=== PATIENT | male | born 1985 | race African-American/Black ===

== ENCOUNTER 2019-01-19 00:10 | Emergency (ER) | payer OTHER ==
[~2019-01-19] VITALS: Ht 182.9 cm; Wt 108.9 kg
--- NOTE | 2019-01-19 00:23 | ED.ADGEN ---
Adult General Chief Complaint Chief Complaint ".. I got a ring stuck on my finger..."..".. Me and home boys tried to get it off.. but made it worse..." HPI HPI Patient is a 33 year old male inmate who presents with above hx and complaints migraine stuck on his middle Lt. finger. Finger is swollen does have an abrasion. Distal circulation does appear to be compromised in comparison to other fingers. Patient states his tetanus was updated within the last 5 years. No recent travel. No specific ill contacts. No trauma to finger other than induced by attempted removal of ring. Review of Systems Review of Systems Constitutional: Denies fever or chills [] Eyes: Denies change in visual acuity, redness, or eye pain [] HENT: Denies nasal congestion or sore throat [] Respiratory: Denies cough or shortness of breath [] Cardiovascular: No additional information not addressed in HPI [] GI: Denies abdominal pain, nausea, vomiting, bloody stools or diarrhea [] : Denies dysuria or hematuria [] Musculoskeletal: Denies back pain or joint pain []complains of pain in left middle or third finger Integument: Denies rash or skin lesions [] Neurologic: Denies headache, focal weakness or sensory changes [] Endocrine: Denies polyuria or polydipsia [] All other systems were reviewed and found to be within normal limits, except as documented in this note. Family History Family History Noncontributory Current Medications Current Medications Current Medications Medications (Trade) Dose Ordered Sig/Jayden Start Time Stop Time Status Last Admin Dose Admin Diphtheria/ Tetanus/Acell Pertussis (Boostrix) 0.5 ml STK-MED ONCE 01/19/19 01:27 01/19/19 01:28 DC Ibuprofen (Motrin) 600 mg STK-MED ONCE 01/19/19 01:26 01/19/19 01:27 DC Allergies Allergies Allergies Coded Allergies Type Severity Reaction Last Updated Verified No Known Drug Allergies 01/19/19 No Physical Exam Physical Exam Constitutional: Well developed, well nourished,in acute distress, non-toxic appearance. [] HENT: Normocephalic, atraumatic, bilateral external ears normal, oropharynx moist, no oral exudates, nose normal. [] Eyes: PERRLA, EOMI, conjunctiva normal, no discharge. [] Neck: Normal range of motion, no tenderness, supple, no stridor. [] Cardiovascular:Heart rate regular rhythm, no murmur [] Lungs & Thorax: Bilateral breath sounds clear to auscultation [] Abdomen: Bowel sounds normal, soft, no tenderness, no masses, no pulsatile masses. [] Skin: Warm, dry, no erythema, no rash. [] Multiple tattoos Back: No tenderness, no CVA tenderness. [] Extremities: No tenderness, no cyanosis, no clubbing, ROM intact, no edema. [] Except findings in middle third finger Neurologic: Alert and oriented X 3, normal motor function, normal sensory function, no focal deficits noted. [] Psychologic: Affect is, judgement normal, mood normal. [] Current Patient Data Vital Signs Vital Signs Date Time Temp Pulse Resp B/P (MAP) Pulse Ox O2 Delivery O2 Flow Rate FiO2 01/19/19 00:32 98.3 75 18 98 Room Air EKG EKG [] Radiology/Procedures Radiology/Procedures [] Course & Med Decision Making Course & Med Decision Making Pertinent Labs and Imaging studies reviewed. (See chart for details) Attempts to remove ring by string technique- was able to move ring forward but not over middle phalange knuckle. Was able then to place ring cutter under ring , but this was not effective. Did manage to use Dice cutters to splint the ring. Abrasion on ring clean and to apply antibiotic ointment 4 x day until healed.Use Ice packs as needed. Return if any concerns. Tylenol and Ibuprofen for discomfort. [] Final Impression Final Impression 1. Ring stuck on 3rd finger Lt. [] Dragon Disclaimer Dragon Disclaimer This electronic medical record was generated, in whole or in part, using a voice recognition dictation system. Dragon Disclaimer This chart was dictated in whole or in part using Voice Recognition software in a busy, high-work load, and often noisy Emergency Department environment. It may contain unintended and wholly unrecognized errors or omissions. Discharge Summary Visit Information Final Diagnosis Problems Medical Problems: (1) Finger injury Status: Acute Brief Hospital Course Allergies Allergies Coded Allergies Type Severity Reaction Last Updated Verified No Known Drug Allergies 01/19/19 No Vital Signs Vital Signs Date Time Temp Pulse Resp B/P (MAP) Pulse Ox O2 Delivery O2 Flow Rate FiO2 01/19/19 00:32 98.3 75 18 98 Room Air Brief Hospital Course Mr. Al is a 33 old male inmate who presented with ring stuck on 3rd finger Lt. Discharge Information Condition at Discharge: Improved, Stable Disposition/Orders: D/C to Home Dischare Medications Current Medications Diphtheria/ Tetanus/Acell Pertussis (Boostrix) 0.5 ml ONCE ONCE [facility]AX IM ; Start 01/19/19 at 02:00; Stop 01/19/19 at 02:00; Status DC Ibuprofen (Motrin) 600 mg 1X ONCE PO ; Start 01/19/19 at 02:00; Stop 01/19/19 at 02:00; Status DC Ibuprofen (Motrin) 600 mg STK-MED ONCE PO ; Start 01/19/19 at 01:26; Stop at 01:27; Status DC Diphtheria/ Tetanus/Acell Pertussis (Boostrix) 0.5 ml STK-MED ONCE VAX IM ; Start 01/19/19 at 01:27; Stop 01/19/19 at 01:28; Status DC ROBBIE TOWNSEND MD Jan 19, 2019 00:23
[2019-01-19 00:32] VITALS: BP 159/97
[2019-01-19] MEDS ORDERED: IBUPROFEN 600 MG TABLET. PO ONE ×2 (01:26→02:00)
[2019-01-19] MEDS ORDERED: DIPHTH,PERTUSS(ACELL),TET TOX 0.5 ML DISP.SYRIN. VAX IM ONE ×2 (01:27→02:00)
== END 2019-01-19 01:36 | disposition home or self-care (01) ==
LOC: EEVIPCON 00:10 → ER 00:10
DX: S60.453A Superficial foreign body of left middle finger, initial encounter (principal); S60.413A Abrasion of left middle finger, initial encounter; W45.8XXA Other foreign body or object entering through skin, initial encounter; Y93.89 Activity, other specified; Y92.89 Other specified places as the place of occurrence of the external cause; Y99.8 Other external cause status
CPT/HCPCS: 99284